=== PATIENT | female | born 1995 | race Caucasian/White ===

== ENCOUNTER 2021-11-03 01:51 | Emergency (ER) | payer OTHER, BC ==
[~2021-11-03] VITALS: Ht 160 cm; Wt 47.6 kg
[2021-11-03 01:51] VITALS: BP_SYST 107
[2021-11-03] MEDS ORDERED: IBUPROFEN 600 MG TABLET PO ONE (02:00)
[2021-11-03] MEDS ORDERED: IBUP-1969 PO (03:08)
[2021-11-03] MEDS ORDERED: METH-634 PO (03:08)
[2021-11-03 03:22] VITALS: BP_SYST 127
== END 2021-11-03 03:22 | disposition home or self-care (01) ==
LOC: SED 01:51
DX: S16.1XXA Strain of muscle, fascia and tendon at neck level, initial encounter (principal); Z79.899 Other long term (current) drug therapy; V49.49XA Driver injured in collision with other motor vehicles in traffic accident, initial encounter; Y93.89 Activity, other specified; Y92.89 Other specified places as the place of occurrence of the external cause; Y99.8 Other external cause status
CPT/HCPCS: 72040-TC; 99283